=== PATIENT | male | born 1970 | race Caucasian/White ===

== ENCOUNTER 2017-12-13 08:56 | Emergency (ER) | payer SELFPAY ==
--- NOTE | 2017-12-13 09:06 | NUR ---
PT NOT IN LOBBY WHEN CALLED.
--- NOTE | 2017-12-13 09:17 | NUR ---
CALLED TO BE TRIAGED,NO ANSWER.PT NOT IN THE LOBBY. [facility]BS
== END 2017-12-13 09:17 | disposition left against medical advice (07) ==
LOC: MED 08:56
DX: Z53.21 Procedure and treatment not carried out due to patient leaving prior to being seen by health care provider (principal)